=== PATIENT | male | born 1950 | race Caucasian/White ===

== ENCOUNTER 2024-11-25 08:46 | Day surgery (SDC) | payer MEDICARE, OTHER, SELFPAY ==
[2024-11-18 09:50] VITALS: BMI 31.7
[2024-11-25] VITALS (13 sets, daily range): BP systolic 104–159; BP diastolic 55–84; PULSE 16–79; RESP 16–20; TEMP 36.2–36.6; O2SAT 93–98; BMI 31.7
--- NOTE | 2024-11-25 06:00 | DI.RAD.S_ITS ---
PROCEDURE: XR HIP W PEL IF DONE RT 2V INDICATIONS: UNA TECHNIQUE: Three view(s) of the right hip(s). COMPARISON: None. FINDINGS: Bones: No fractures or dislocations. Hardware status post right hip arthroplasty without evidence of complication. Pelvic ring appears intact. No suspicious bony lesions. Soft tissues: The visualized bowel gas pattern is normal. No suspicious soft tissue calcifications. IMPRESSION: No acute bony abnormality or hardware complication status post right hip arthroplasty. Dictated by: Kelvin Pitts M.D. on 11/27/2024 at 18:25 Approved by: Kelvin Pitts M.D. on 11/27/2024 at 18:26
[2024-11-25] MEDS: MELOXICAM 7.5 MG TABLET 15 MG PO (09:32)
--- NOTE | 2024-11-25 10:25 | PM.PREOP ---
Pre-operative Note Interval Note History & Physical reviewed/Exam performed by Physician: Yes Changes to H&P: No
[2024-11-25] MEDS: CEFAZOLIN 2 GM/100 ML PREMIX 100 ML IV (11:15)
[2024-11-25] MEDS: TRANEXAMIC ACID 1,000 MG VIAL 1000 MG INJ (11:45)
--- NOTE | 2024-11-25 11:58 | SUR.OPER ---
Supine on padded Hildebran table with bilateral legs secured in padded positioning boots and suspended in positioning spars, operative leg in traction per surgeon. Head on one pillow. Bilateral arms secured on padded armboards <90 degrees abduction. Padded perineal post in place per surgeon.
--- NOTE | 2024-11-25 13:21 | SUR.OPER ---
POVIDONE IODINE, PEROXIDE, NORMAL SALINE IRRIGATION
--- NOTE | 2024-11-25 13:26 | PM.OP.1 ---
Operative Date/Time/Diagnoses Date of procedure: 11/25/24 Time of procedure: 12:00 Pre-op diagnosis: Right hip osteoarthritis Post-op diagnosis: same Procedure & Clinicians Procedure: Right total hip arthroplasty Same procedure(s) as scheduled: Yes Surgeon: Juan Antonio Simons Timber Framer: Damaris Piña Anesthesia Type: Spinal, Sedation and Local Operative Notes Findings: Severe right hip arthritis Applied: implant(s) Estimated Blood Loss (mL): 250 Procedure in detail: 1. Right Uncemented Direct Anterior Miguel Total Hip Arthroplasty (34285) 2. Computer-Assisted Musculoskeletal Surgical Navigational Orthopedic Procedure Using Fluoroscopic Image Guidance (0054T) Implants: G7 PPS size 62 cup? Z1 femoral stem size 7 coxa vara 40 mm +0 ceramic femoral head? Procedure Summary: This 74-year-old male patient had a short varus neck and was templated for a coxa vara neck with a +7 head. Fluoroscopically during trialing he was noted to be significantly increased from both a lengthened an offset perspective. Downsizing to a +0 head improved both of those parameters without compromising stability so those definitive implants were used. He had robust bone quality but his soft tissue tension was manageable without a conjoined tendon release. He has a significant cardiac history so we will plan to keep him overnight for cardiac monitoring Procedure in Detail: This patient was seen preoperatively and evaluated for hip pain which was refractory to numerous nonoperative treatment modalities. Their hip pain correlated with radiographic changes demonstrating significant degeneration in the hip joint. The risks and benefits of continued nonoperative management versus operative management were discussed at length and all of the patient?s questions were answered. Additional educational materials providing further details beyond our discussion in clinic were provided via a publicly available patient education video which included the incidence of medical complications associated with total hip arthroplasty, reasons for revision following total hip arthroplasty, and patient satisfaction rates following total hip arthroplasty. With this understanding of the risks inherent to the procedure, the patient elected to move forward with operative management. Following preoperative optimization, the patient was scheduled for surgery. The patient was met in the preoperative holding area the day of the procedure and all questions were answered. The patient?s nares were swabbed in order to decolonize them from MRSA. Informed consent was signed and the right limb was marked with indelible ink.? The patient was brought back to the operating room where anesthesia was induced. The patient was transferred to the Harling[place] table and all bony prominences were padded. The operative site was prepped and draped in the usual sterile fashion. Prior to incision, tranexamic acid and cefazolin were administered. Operative templating images were displayed demonstrating the anticipated implant sizes and correct operative extremity. A timeout procedure was performed verifying the patient?s identity, medical comorbidities, allergies, relevant medications, anesthesia type and the surgical plan. All present were in agreement. The assistance of a physician residential living assistant was required for positioning, room setup, soft tissue retraction and wound closure. Without this assistance, the procedure would have been significantly more challenging and time consuming.?? A direct anterior approach to the hip was utilized. This was performed with a longitudinal incision through a Heuter interval. The incision was planned 2 cm distal and 2 cm lateral to the ASIS extending towards the lateral patella, in line with the muscle body of the TFL. Following incision, the subcutaneous tissue was dissected while taking care to avoid injury to the lateral femoral cutaneous nerve. The fascia overlying the TFL was identified by dissecting off the overlying fat and identifying perforating vessels to the TFL. The TFL fascia was incised and dissected away from the medial border of the TFL. A retractor was placed over the superior femoral neck between the abductors and the hip capsule and used to reflect the TFL laterally. A Thurston self-retainer was then placed in the distal aspect of the wound between the TFL and the rectus femoris. This was tensioned to open up the direct anterior interval and the lateral circumflex vessels were identified and coagulated using electrocautery. The floor of the TFL fascia was incised, exposing the pericapsular fat overlying the hip capsule. A second cobra retractor was placed on the inferior femoral neck. A retractor was placed on the anterior wall of the acetabulum and used to tension the reflected head of rectus femoris, which was then released in order to limit soft tissue tension. A capsulotomy was made in the midline of the anterior hip capsule in line with the femoral neck ending at the vastus tubercle. The anterior retractor was removed as soon as the capsulotomy was completed in order to limit the amount of time that a soft tissue retractor remained on the anterior wall and limit tension on the femoral nerve. Tag stitches were placed in the superior and inferior leaflets of the hip capsule. An Mihir soft tissue retractor was introduced over the tag stitches and tensioned in the interval between the rectus femoris and the TFL in order to retract and protect those muscles. The cobra retractors were replaced intracapsularly, with one over the superior neck in the pocket created by the base of the greater trochanter and the other on the femoral head. The capsulotomy was extended laterally to the base of the greater trochanter and medially to the lesser trochanter. This required externally rotating the hip. Once the lesser trochanter had been identified, a neck cut was planned according to measurements from preoperative templating. A ruler was cut at the length measured between the superior aspect of the lesser trochanter and the collar of the prosthesis. This line was extended towards the inferior aspect of the lateral cobra retractor to plan a cut which would leave minimal residual femoral neck laterally. The neck was cut at 60 degrees of external rotation along that line. A second cut was performed to remove a large napkin ring and facilitate head extraction. The napkin ring cut and femoral head were removed.?? A broad anterior wall retractor was placed between the labrum and the anterior capsule so that the anterior capsule would prevent capturing and pinching the femoral nerve anteriorly. An additional retractor was placed on the posterior wall. External rotation and traction were applied through the Harlingen table so that the cut surface of the femoral neck would not restrict access to the acetabulum. The labrum was excised sharply and the pulvinar was excised with electrocautery to limit bleeding from branches of the obturator artery. Acetabular reamers were selected based on preoperative templating and measurements of the excised femoral head. These were introduced into the acetabulum. Fluoroscopy was utilized to replicate a standing AP pelvis radiograph by centering over the pelvis, rotating until there was appropriate symmetry between the obturator foramen, and introducing caudal tilt to match the position of the pubic symphysis relative to the sacrococcygeal junction according to the patient?s anatomy. Once satisfied with the reaming depth corresponding to the preoperative template and the pinch fit between the columns, an appropriate sized acetabular cup was selected which would provide 1 mm of press-fit. This cup was introduced and manipulated until appropriate abduction and anteversion angles were obtained with careful attention to appropriate abduction and anteversion angles as evaluated by the position of the cup relative to the anterior and posterior quintanilla of the acetabulum and the AP fluoroscopy which recreated the patient?s standing radiograph. The cup was impacted into place. Peripheral osteophytes were removed. The acetabular liner was then placed with care to ensure locking of the locking mechanism. Attention was then turned to the femur. All retractors were removed, traction was released, a retractor was placed in the interval between the hip capsule and the gluteus minimus. The lateral capsule was released using electrocautery. Traction was released and a Harlingen hook was placed posteriorly around the proximal femur at the level of the vastus ridge. The table height was lowered in order to restrict the tension on the anterior structures during hip hyperextension to limit the risk of femoral nerve palsy. With traction off and the hip at 90 degrees of external rotation, the hip was hyperextended and adducted while manually elevating the femur away from the acetabulum with the Harlingen hook to avoid hooking the greater trochanter on the pelvis. An asymmetric retractor was placed over the calcar and a broad double-pronged retractor was placed over the greater trochanter. The tag stitch capturing the lateral leaflet of the capsule was moved to the medial side, leaving the conjoined and piriformis tendons isolated in the face of the greater trochanter. The hip was externally rotated and elevated. A release of the conjoined tendon was not necessary in order to obtain adequate exposure for broaching. The canal was opened with an opening broach and a rasp was used to remove cancellous bone. A rongeur was used to remove the residual lateral bone at the base of the greater trochanter to avoid placing the stem in varus. The femur was then broached to the appropriate sized stem yielding good rotational fit and fill of the canal as well as appropriate version of the stem trial. Neck and head trials were placed, all retractors were removed and the hip was returned to neutral abduction and extension. I then reduced the hip and manually trialed it before changing surgical gloves. Initial trialing was performed with a size 7 broach, a coxa vara offset neck and a +7 head. I initially manually externally rotated the hip and found no instability. It was very difficult to reduce the hip. I then locked the hip in 45 degrees of external rotation and dropped it to the floor with traction off which demonstrated no instability. An AP pelvis fluoroscopic image matching the preoperative standing radiograph with both lesser trochanters visible and both hips in 40 degrees of external rotation demonstrated significant increases in both leg length and offset. AP and lateral hip fluoroscopic images were obtained to evaluate the broach size which demonstrated good canal fill. I therefore removed the +7 trial head and replaced it with a +0 trial head. There was still no instability with maximum external rotation or a 45 degree drop test and both leg length and offset were improved relative to the contralateral side. The hip was dislocated and I returned to the broaching position. Based on my evaluation during initial trialing I planned to place those definitive implants. The definitive stem was placed and the trunnion was cleaned and dried. I placed a ceramic head onto the trunnion and impacted it into place on the Arias taper.?? All retractors were removed and the hip was reduced. A dilute mixture of betadine and peroxide was used to bathe the soft tissues during final fluoroscopic assessment. Appropriate component positioning was confirmed on an AP pelvis radiograph with the operative and nonoperative legs in 40 degrees of external rotation, evaluating leg length and offset. Appropriate stem fill was evaluated on AP and lateral hip radiographs. No previously unrecognized fractures were identified on these radiographs. There was no hip instability with maximum (115?) external rotation as well as a 45 degree drop test. The hip was copiously irrigated with pulse lavage. The capsule was closed with absorbable interrupted suture. The TFL fascia was closed with barbed suture while carefully protecting the lateral femoral cutaneous nerve from entrapment. A mixture of Ropivacaine, Epinephrine and Toradol was infiltrated throughout the soft tissues. The skin was closed with 2-0 and 3-0 sutures. Surgical glue was applied and a soft dressing was placed.??The sponge, instrument and needle counts were reported as being correct at the end of the case.??No obvious complications occurred. The patient was transferred from the [facility] back to a stretcher. The patient emerged from anesthesia without difficulty and was taken to the PACU in a stable condition.? Plan for aftercare: No hip precautions Weightbearing as tolerated Aspirin 81 twice per day for DVT prophylaxis Anticipate discharge home tomorrow Multimodal pain regimen with no IV opioids ordered Follow up at [facility] [place] in 2 weeks Complications: none Post-operative Condition: stable Disposition: PACU
--- NOTE | 2024-11-25 13:35 | DI.RAD.S_ITS ---
PROCEDURE: XR HIP W PEL IF DONE RT 2V INDICATIONS: RIGHT TOTAL HIP TECHNIQUE: AP pelvis and lateral view of the hip acquired. COMPARISON: [facility], CR, XR HIP W PEL RT 2V, 11/25/2024, 12:31. FINDINGS: Bones: Patient is status post right hip arthroplasty, with hardware components in expected positions. The hip joint appears congruent. The visualized bony structures appear intact. Soft tissues: Overlying postoperative changes are noted. No suspicious soft tissue densities. Atherosclerotic calcification is noted. IMPRESSION: Expected post-operative appearance of a hip arthroplasty. Dictated by: Ish Munguia M.D. on 11/25/2024 at 13:36 Approved by: Ish Munguia M.D. on 11/25/2024 at 13:36
--- NOTE | 2024-11-25 14:51 | PT-IP ANOTE ---
PT consult received and PT checks on pt in the PACU. Pt is alert but not tracking to PT and no verbalizations. Pt cannot yet move his right leg. Plan is for him to come up to the floor to 212. Anticipate PT assessment next a.m.
--- NOTE | 2024-11-25 14:51 | OT.IPNOTE ---
OT consult received. OT checked on pt in PACU. Pt is alert but unable to track and is currently unable to move his R LE. Pt will be t/f to room 212. OT will attempt evaluation tomorrow.
[2024-11-25 17:23] LABS: Hematocrit 38.4 % (41-53); Hemoglobin 13.3 g/dL (13.5-17.5)
--- NOTE | 2024-11-25 17:50 | PM.PNPO.1 ---
Subjective Subjective Interval history: I came by to check on Jeremías postoperatively. He was resting comfortably. He has ice on his hip. He has intact plantar flexion and dorsiflexion of the ankle as well as intact quadriceps function. He reports paresthesias persisting down the right leg consistent with persistent spinal effects. He is on telemetry with stable heart rate and blood pressure. We are monitoring him overnight to ensure he does not have any cardiac issues. We will plan for discharge tomorrow. We will hold his morning labs per his request so that he does not get woken up early in the morning in his able to get as much sleep as possible on this 1st night postoperatively. Exam Vital Signs (past 8 hours): - 11/25/24 14:04 11/25/24 14:09 11/25/24 14:14 Temperature 97.2 F L Pulse Rate 70 69 16 L Respiratory Rate 16 16 16 Blood Pressure 107/58 L 110/60 104/56 L Pulse Oximetry 98 95 98 Oxygen Delivery Method Room Air Room Air Room Air 11/25/24 14:20 11/25/24 14:34 11/25/24 14:45 Temperature 97.1 F L Pulse Rate 69 68 78 Respiratory Rate 16 16 16 Blood Pressure 110/58 L 104/56 L 106/58 L Pulse Oximetry 98 98 96 Oxygen Delivery Method Room Air Room Air Room Air 11/25/24 14:45 11/25/24 15:15 11/25/24 15:46 Temperature 97.4 F L 97.9 F 97.6 F Pulse Rate 68 67 66 Respiratory Rate 20 18 18 Blood Pressure 106/55 L 106/56 L 113/67 Pulse Oximetry 95 93 94 Oxygen Delivery Method Oxygen Delivery Method Room Air Objective Labs 11/25/24 17:15 Labs: Laboratory Results - last 24 hr 11/25/24 17:15 Hgb 13.3 L Hct 38.4 L [facility] Medical History (Updated 11/18/24 @ 11:52 by Chrissy Youssef RN) ICD (implantable cardioverter-defibrillator) in place (Unknown) HLD (hyperlipidemia) Tinnitus TIA (transient ischemic attack) (~2004) Gout COPD (chronic obstructive pulmonary disease) Asthma Abdominal aortic aneurysm (~2004) HTN (hypertension) Ischemic cardiomyopathy History of myocardial infarction (2005) CAD (coronary artery disease) Primary osteoarthritis of right hip Surgical History (Updated 07/21/25 @ 10:23 by Chrissy Youssef RN) Hx of colonoscopy History of urologic surgery Hx of tonsillectomy Social History household members: other Smoking Status: Former smoker alcohol intake: current Assessment & Plan Post-op Postoperative Procedures: Procedures Operation Date: 11/25/24 10:45 Actual Procedure Side Surgeon p Total Hip Arthroplasty/Anterior Approach Right Juan Antonio Simons MD Quality VTE Deep Vein Thrombosis/Pulmonary Embolism Present on Admission: No
[2024-11-25] MEDS: LACTATED RINGERS 1,000 ML 100 ML IV (18:00)
[2024-11-25] MEDS: ACETAMINOPHEN 325 MG TABLET 975 MG PO (22:05)
[2024-11-25] MEDS: ASPIRIN EC 81 MG TABLET PO (22:05)
[2024-11-25] MEDS: MELATONIN 3 MG TABLET 9 MG PO (22:37)
[2024-11-26] MEDS: TRAMADOL 50 MG TABLET PO (02:23)
[2024-11-26 04:56] VITALS: BP 123/69; PULSE 86; RESP 18; TEMP 36.3; O2SAT 95
[2024-11-26] MEDS: ACETAMINOPHEN 325 MG TABLET 975 MG PO ×2 (06:25→13:06)
[2024-11-26 08:39] VITALS: BP 104/56; PULSE 71; RESP 17; TEMP 37; O2SAT 96
[2024-11-26] MEDS: MELOXICAM 7.5 MG TABLET 15 MG PO (08:43)
[2024-11-26] MEDS: PANTOPRAZOLE DR 40 MG TABLET PO (08:43)
[2024-11-26 08:44] VITALS: BP 124/73; PULSE 74
[2024-11-26] MEDS: ASPIRIN EC 81 MG TABLET PO (08:44)
[2024-11-26] MEDS: EZETIMIBE 10 MG TABLET PO (08:44)
[2024-11-26] MEDS: METOPROLOL ER 50 MG TABLET 100 MG PO (08:44)
--- NOTE | 2024-11-26 09:37 | P.DS_ITS ---
History of Present Illness History of Present Illness Chief complaint: Right Total Hip Arthroplasty/Anterior Approach Narrative: 74-year-old male with a past medical history of coronary artery disease with a prior myocardial infarction presented to [facility] on 11/25/2024 for planned right total hip arthroplasty via anterior approach by Dr. Simons. This elective procedure was planned for chronic right hip osteoarthritis limiting normal activities and causing pain. Surgery was planned after completing preoperative education through online education series of videos. Discharge Providers Provider Discharge Date: 11/26/24 Primary care physician: Doctor Farida MD Consults: 11/18/24 11:59 Consult to Anesthesiology Routine Comment: Consulting Provider: Anesthesiologist Reason for consultation: Surgeon requested re: ICD 11/25/24 06:00 Consult to Anesthesiology Routine Comment: Consulting Provider: Anesthesiologist Reason for consultation: Regional block for post operative pain control 11/25/24 14:06 Consult to Discharge Planning Routine Comment: Consult to Occupational Therapy Evaluate & Treat Comment: Physician Instructions: Evaluate and treat Consult to Physical Therapy Evaluate & Treat Comment: Physician Instructions: Evaluate and Treat Discharge provider: GEORGINA Degroot Dr Summary Hospital Course Hospital Course: On 11/25/2024 the patient was brought to the operating room for right total hip arthroplasty by Dr. Simons at [facility] via anterior approach. There were no immediately known complications to the surgery. He was transferred to the floor for cardiac monitoring overnight. There were no known cardiac events overnight while he was monitored on telemetry and he maintain normal sinus rhythm. On postoperative day 1 his pain was controlled with oral analgesics and he was tolerating normal diet. He was making urine and was able to move to the bathroom with the assist of a walker. He was awaiting physical therapy assessment at time of orthopedic evaluation this morning. Today his vital signs were stable and he felt comfortable returning home in accordance with preoperative plan. Time Spent with Patient Time spent: Less than 30 minutes Exam Vital Signs (past 8 hours): - 11/26/24 04:56 11/26/24 08:39 11/26/24 08:44 Temperature 97.4 F L 98.6 F Pulse Rate 86 71 74 Respiratory Rate 18 17 Blood Pressure 123/69 104/56 L 124/73 Pulse Oximetry 95 96 Oxygen Flow Rate 0 0 11/26/24 08:44 Temperature Pulse Rate 74 Respiratory Rate Blood Pressure 124/73 Pulse Oximetry Oxygen Flow Rate Oxygen Delivery Method Room Air Oxygen Flow Rate 0 Narrative Exam Narrative: Well-developed, well-nourished, 74-year-old male, no acute distress Aquacel dressing is dry and intact to right hip without drainage or erythema or ecchymosis Femoral and sciatic nerve function is intact Objective Labs 11/25/24 17:15 Labs: Laboratory Results - last 24 hr 11/25/24 17:15 Hgb 13.3 L Hct 38.4 L PFSH Medical History (Updated 11/18/24 @ 11:52 by Chrissy Youssef RN) ICD (implantable cardioverter-defibrillator) in place (Unknown) HLD (hyperlipidemia) Tinnitus TIA (transient ischemic attack) (~2004) Gout COPD (chronic obstructive pulmonary disease) Asthma Abdominal aortic aneurysm (~2004) HTN (hypertension) Ischemic cardiomyopathy History of myocardial infarction (2005) CAD (coronary artery disease) Primary osteoarthritis of right hip Surgical History (Updated 11/18/24 @ 10:23 by Chrissy Youssef RN) Hx of colonoscopy History of urologic surgery Hx of tonsillectomy Social History household members: other Smoking Status: Former smoker alcohol intake: current Discharge Assessment & Plan Assessment and Plan Assessment: 74-year-old male with a past medical history of coronary artery disease status post myocardial infarction with ICD in place, TIA, COPD, ischemic cardiomyopathy and abdominal aortic aneurysm is postoperative day 1 from a right total hip arthroplasty by Dr. Simons at [facility] on 11/25/2024. He is recovering well with adequate pain control on oral analgesics and has been ambulating with a front wheeled walker. He denies chest pain, dyspnea, nausea and emesis. He is making urine spontaneously. He is awaiting physical therapy assessment today. The plan is to discharge home today after physical therapy. Plan:? * Weightbearing as tolerated to right lower extremity with front wheeled walker? * Anterior hip precautions? * DVT prophylaxis with 81 mg aspirin twice daily * Continue multimodal analgesia with Tylenol, meloxicam and oxycodone? * Bowel regimen as needed? * Physical therapy evaluation and treatment today? * Follow up with orthopedics 2 weeks post operatively? * All post operative medications ordered at pre operative visit? * Ice to surgical site as needed? Discharge Plan Discharge Plan Patient Disposition: Home Discharge orders & Medications Discharge Orders: Discharge (Order); Ordered 11/26/24 Ordered By: Carleen Tapia Prescriptions: Continued albuterol sulfate 90 mcg/actuation HFA aerosol inhaler 2 inh inhalation Q6-8H PRN (Reason: shortness of breath) Patient Comments: this a.m. fluticasone propion-salmeterol 250-50 mcg/dose blister with device 1 inh inhalation QAM metoprolol succinate 100 mg tablet extended release 24 hr 100 mg PO DAILY lisinopril 40 mg tablet 40 mg PO DAILY ezetimibe [Zetia] 10 mg tablet 10 mg PO DAILY spironolactone [Aldactone] 25 mg tablet 12.5 mg PO DAILY Patient Comments: Not sure of any of the first two. Either heart or blood pressure or cholesterol. meloxicam 15 mg tablet 15 mg PO DAILY PRN (Reason: pain) Qty: 30 1RF pantoprazole 40 mg tablet,delayed release (DR/EC) 40 mg PO DAILY Qty: 30 0RF docusate sodium [Colace] 100 mg capsule 100 mg PO BID PRN (Reason: constipation) Qty: 60 0RF tramadol 50 mg tablet 50 mg PO Q6H PRN (Reason: pain) Qty: 25 0RF Patient Comments: for post op Changed aspirin [Adult Low Dose Aspirin] 81 mg tablet,delayed release (DR/EC) 81 mg PO BID 42 Days Qty: 84 0RF Patient Comments: Does not take on weekends acetaminophen 500 mg capsule 1,000 mg PO Q8H PRN (Reason: Pain) Qty: 90 0RF Patient Comments: took at 0700 Follow up/Referrals: Miscellaneous,Doctor, [Primary Care Provider, Medical] Diet/Activity/Treatments Diet: Diet as Tolerated and Low-sodium Activity: weight bearing as tolerated to right lower extremity with walker Cold/Heat Therapy: ice to right hip Other treatments: Take aspirin 81 mg twice daily (every 12 hours) for prevention of blood clots. Take pain medications as prescribed at your preoperative visit Skin/Wound/Dressing Care Report to your healthcare provider any signs of infection, such as:: chills, fever, night sweats, increased pain, unusual drainage and unusual redness Dressing: leave dressing in place to right hip until follow up in orthopedic clinic Call the office if the dressing becomes saturated or falls off sooner than our 2 week follow up Visit Report/Discharge Packet Instructions: DI for Hip Replacement Stand Alone Forms: Patient Portal/API, Surgery Discharge Print Language: Ukrainian Discharge Data Primary Care Provider: Miscellaneous,Doctor Attending Provider: Juan Antonio Simons VTE Deep Vein Thrombosis/Pulmonary Embolism Present on Admission: No IH PROFEE Charge Codes Discharge inpatient/observation: 07804
--- NOTE | 2024-11-26 10:20 | PT.IIE ---
Current Diagnoses Unilateral primary osteoarthritis, right hip (11/25/24) Surgery Performed Operation Date: 11/25/24 10:45 Actual Procedures p Total Hip Arthroplasty/Anterior Approach(Right) - Juan Antonio Simons MD Surgical History (Last Updated 11/18/24 @ 10:23 by Chrissy Youssef, RN) History of urologic surgery Hx of colonoscopy Hx of tonsillectomy Medical History (Last Updated 11/18/24 @ 11:52 by Chrissy Youssef RN) Abdominal aortic aneurysm (~2004) Asthma CAD (coronary artery disease) COPD (chronic obstructive pulmonary disease) Gout History of myocardial infarction (2005) HLD (hyperlipidemia) HTN (hypertension) ICD (implantable cardioverter-defibrillator) in place (Unknown) Ischemic cardiomyopathy Primary osteoarthritis of right hip TIA (transient ischemic attack) (~2004) Tinnitus Physical Therapy Inpatient Evaluation/Re-Eval M1 PT/OT-IP Prior Functional Status Start: 11/25/24 14:52 Freq: NEEDED Status: Active Protocol: Document 11/26/24 10:20 AB (Rec: 11/26/24 13:31 AB [id number]) Medical Review Prior Functional Status Medical History Yes Reviewed Communication able to make needs known Mobility and Gait pt stated that he was modified independent with all mobilities and ambulation without AD but started using a 4WW ~ 3-4 months ago due to hip pain Social History Household Members other Living Arrangements House Number of Floors ( One Floor Floors) Number of Stairs To 5 steps R rail ascending to enter Enter/Railing? Home Environment Standard Height Toilet,Walk in Shower Home Equipment Front Wheel Walker,Shower Seat without Backrest,Hand Held Shower,Grab Bars In Shower Additional Social pt brother will be staying with pt for ~ 4days to History Comment assist him M2 PT-IP Current Condition Start: 11/25/24 14:52 Freq: NEEDED Status: Active Protocol: Document 11/26/24 10:20 AB (Rec: 11/26/24 13:31 AB [id number]) Physical Therapy Current Condition Current Condition Evaluation Date 11/26/24 Treatment Diagnosis s/p R UNA anterior; difficulty in walking Onset Date 11/25/24 M3 PT-IP Subjective Start: 11/25/24 14:52 Freq: NEEDED Status: Active Protocol: Document 11/26/24 10:20 AB (Rec: 11/26/24 13:31 [id number]) Subjective Physical Therapy Visit Type Type Initial Evaluation Visit Start Time 10:20 Visit Stop Time 11:30 Notes pt seen for split visits: 1020 am to 1030 am and 1055 am to 1130 am Number of DIESEL ENGINE FITTER Visits 0 Physical Therapy Visit Comments Patient Comments agreeable to do PT Therapy Pain Assessment Pain When Pain Assessed At Rest Pain Present Pain Present Pain Reported Location Right Hip Intensity 4 Scale Used Numeric (0 - 10) Pain Management Apply Cold,Distraction,Modification of Treatment,Re- Techniques positioning,Timing of Activity with Medications M4 PT-IP Mobility and Gait Start: 11/25/24 14:52 Freq: NEEDED Status: Active Protocol: Document 11/26/24 10:20 AB (Rec: 11/26/24 13:31 [id number]) PT-Bed Mobility Assessment Supine to Sit Supine to Sit Standby Assistance PT-Transfer Assessment Sit to and From Stand Sit to and from Contact Guard Assistance,1 Person Assistance,Use of Stand Upper Extremities Equipment Transfer Assistive Gait Belt,Front Wheeled Walker Device Orthotic/Prosthetic No Devices or Brace: Transfers Transfer Destination Chair Transfer Technique ambulated Transfer Ability Level of Assist Standby Assistance,Contact Guard Assistance,1 Person Assistance,2 Person Assistance Comments Mobility Comments pt in bed and agreeable to do PT. obtain PLOF and home setup. Nurse came in to check on pt's pacemaker and PT has to come back to PT again after a few minutes. Checked on pt. BP: 110/59. completed supine to sit SBA . able to sit on EOB SBA. sit to stand CGA and ambulated in room using FWW CGA. ~ 25 ft and sat on chair. assessed ambulation using 4WW. sit to stand from chair SBA and ambulated in the hallway using 4WW sBA to CGA. pt completed up/down steps B rails on first attempt CGA and completed again holding on to R rail with B hands CGA. pt ambulated back to his room using 4WW SBA to CGA. Left pt with OT. Gait Assessment Gait Gait Assistance Standby Assistance,Contact Guard Assist Required: Distance (Feet) 100 Able to Maintain Yes Weight Bearing Status During Gait Assistive Devices Assistive Device Gait Belt,Front Wheeled Walker Orthotic/Prosthetic No Devices or Brace: Gait Deviations General Gait Pattern Antalgic,Decreased Stride Length,Decreased Feet Clearance Factors Limiting Gait Function Factors Limiting Decreased Activity Tolerance,Decreased Strength,Limited Gait Function Range of Motion,Pain,Poor Balance,Poor Safety Awareness Stair Climbing Assessment Evaluation Level of Assist On Contact Guard Assistance,1 Person Assistance Stairs Devices Stair Climbing Right Railing Assistive Devices Technique/Endurance Stair Climbing Ascend and Descend Direction Stair Climbing Step to Step Technique Number of Steps 3 Climbed Query Text: Stair Climbing Set # 2 Repetitions (reps) PT-Balance Assessment Sitting Balance and Reactions Static Sitting Normal Balance Ability Dynamic Sitting Good Balance Ability Standing Balance and Reactions Static Standing Fair Balance Ability Dynamic Standing Fair Balance Ability Device Used 4WW M5 PT-IP Objective Assessments Start: 11/25/24 14:52 Freq: NEEDED Status: Active Protocol: Document 11/26/24 10:20 AB (Rec: 11/26/24 13:31 AB [id number]) Orientation Orientation/Cognition Level of Alertness Alert Orientation Name,Place,Situation Language Function No Deficits Noted Ability Safety Awareness Understands Safety Issues Memory Description No Deficits Noted Gross Range of Motion Lower Extremity ROM Assessment Within Functional Limits Strength Lower Extremity Strength Assessment Within Functional Limits Coordination Assessment Gross Coordination Gross Coordination WNL Sensation Assessment Sensation Gross Sensation WNL Muscle Tone Muscle Tone WNL Yes M6 PT-IP Treatment Start: 11/25/24 14:52 Freq: NEEDED Status: Active Protocol: Document 11/26/24 10:20 AB (Rec: 11/26/24 13:31 AB [id number]) Physical Therapy Treatment Education Education Provided Weight Bearing Status,Post-Op Packet,Safety M7 PT-IP Assessment and Plan Start: 11/25/24 14:52 Freq: NEEDED Status: Active Protocol: Document 11/26/24 10:20 AB (Rec: 11/26/24 13:31 AB [id number]) PT Summary Assessment and Plan Potential Rehabilitation Good Potential Status of Condition Stable at Evaluation Summary Impairments Pain,ROM,Strength,Balance,Coordination,Sensation,Tone, Cognition,Bed Mobility,Transfers,Gait,Activity Tolerance Assessment Summary pt is a 74 y/o M s/p R UNA anterior approach POD 1. pt is WBAT on RLE. pt requiring SBA to CGA with mobility using FWW. pt plans to go home with his brother assist him for ~ 4 days. pt has out pt PT setup. Goals Bed Mobility Goal Independent Transfer Goal Independent,Front Wheeled Walker Gait Goal Independent,Front Wheel Walker Gait Distance 200 Other Goals up/down 5 steps R rail ascending SBA Days to Meet Goals 5 Frequency of Treatment Frequency Of Twice a Day Treatment Treatment Plan Physical Therapy Bed Mobility Training,Transfer Training,Gait Training, Treatment Plan Therapeutic Exercise,Balance Retraining,Post Op Education,Discharge Planning,Hot or Cold Pack, Neuromuscular Re-ed,Coordination Retraining,Manual Therapy Weight Bearing Status Weight Bearing Weight Bear as Tolerated Status Allowed Weight RLE WBAT Bearing Amount ( enter % or #) (%) Recommendations To Nursing Amount of Assist 1 Person Assist Needed Discharge Recommendations PT Discharge Home with Assistance,Outpatient PT Recommendations Transportation Needs Private Vehicle at Discharge - PT assist 1
--- NOTE | 2024-11-26 12:19 | CM.DPC ---
DCP Cont. Faxed [facility] order and f/f to [facility]. They will review and confirm SOC.
--- NOTE | 2024-11-26 15:19 | OT.IP.EVAL ---
Current Diagnoses Unilateral primary osteoarthritis, right hip (11/25/24) Surgery Performed Operation Date: 11/25/24 10:45 Actual Procedures p Total Hip Arthroplasty/Anterior Approach(Right) - Juan Antonio Simons MD Past Medical History (Last Updated 11/18/24 @ 11:52 by Chrissy Youssef, RN) Abdominal aortic aneurysm (~2004) Asthma CAD (coronary artery disease) COPD (chronic obstructive pulmonary disease) Gout History of myocardial infarction (2005) HLD (hyperlipidemia) HTN (hypertension) ICD (implantable cardioverter-defibrillator) in place (Unknown) Ischemic cardiomyopathy Primary osteoarthritis of right hip TIA (transient ischemic attack) (~2004) Tinnitus Surgical History (Last Updated 11/18/24 @ 10:23 by Chrissy Youssef RN) History of urologic surgery Hx of colonoscopy Hx of tonsillectomy Occupational Therapy Inpatient Evaluation/Re-Eval M1 PT/OT-IP Prior Functional Status Start: 11/25/24 14:52 Freq: NEEDED Status: Discharge Protocol: Document 11/26/24 12:00 AJIT (Rec: 11/26/24 15:18 [facility] Desktop) Medical Review Prior Functional Status Medical History Yes Reviewed Communication able to make needs known Mobility and Gait pt stated that he was modified independent with all mobilities and ambulation without AD but started using a 4WW ~ 3-4 months ago due to hip pain Activities of Daily pt reports that he performed all his BADL, yard work, Living and IADL's driving, and housework Social History Household Members other Living Arrangements House Number of Floors ( One Floor Floors) Number of Stairs To 5 steps R rail ascending to enter Enter/Railing? Home Environment Standard Height Toilet,Walk in Shower Home Equipment Front Wheel Walker,Shower Seat without Backrest,Hand Held Shower,Grab Bars In Shower Additional Social pt brother will be staying with pt for ~ 4days to History Comment assist him M2 OT-IP Current Condition Start: 11/25/24 14:52 Freq: Status: Discharge Protocol: Document 11/26/24 12:00 AJIT (Rec: 11/26/24 15:18 [facility] Desktop) Occupational Therapy Current Condition Current Condition Evaluation Date 11/26/24 Treatment Diagnosis s/p R UNA anterior, decreased self care Diagnosis Onset Date 11/25/24 Post Operative Precautions Other Precautions per operative note, no hip precautions Weight Bearing Status Weight Bearing Weight Bear as Tolerated Status M3 OT- IP Subjective and Pain Start: 11/25/24 14:52 Freq: Status: Discharge Protocol: Document 11/26/24 12:00 [facility] (Rec: 11/26/24 15:18 [facility] Desktop) OT- Subjective Occupational Therapy Visit Type Type Initial Evaluation Visit Start Time 10:55 Visit Stop Time 11:31 Notes Pt reclined in bed on entrance of OT. Pt agreeable to participating in OT eval. Occupational Therapy Visit Comments Patient Comments To go home. OT Pain Assessment Pain When Pain Assessed At Rest Pain Present Pain Present Pain Reported Location Right Hip Intensity 4 Scale Used Numeric (0 - 10) M4 OT- IP ADL's Start: 11/25/24 14:52 Freq: Status: Discharge Protocol: Document 11/26/24 12:00 [facility]NAL[facility] (Rec: 11/26/24 15:18 [facility] Desktop) OT [id number]-Szffrof Comments OT Self-Feeding not observed Comments OT ADL-Grooming General Evaluation Grooming Ability Independent Comments OT Grooming Comments pt performs hair grooming sink side with mod I, using 4WW. OT ADL-Oral Care Comments Oral Care Comments not observed, pt declined OT ADL-Dressing General Eval Upper Body Dressing Independent Ability Lower Body Dressing Maximum Assistance Ability Areas Needing Retrieving/Set-up of Clothing,Underpants/Brief,Pants/ Assistance Shorts,Socks Comments OT Dressing Comments Pt was MAX A for LB dressing while sitting up in chair. OT then ed pt on use of LB AE for LB dressing (lapper, sock aid, shoe horn). Pt used the lapper to doff sock with min vcs/CGA, sock aid to don sock with min vc/CGA , and the lapper to start underpants on B LEs. Pt declined standing to pull them up over his hips. OT ADL-Toileting General Evaluation Toileting Ability Independent Devices Toileting Assistive Urinal Devices OT ADL-Bathing Comments OT Bathing Comments not observed M5 OT- IP IADL's Start: 11/25/24 14:52 Freq: Status: Discharge Protocol: Document 11/26/24 12:00 AJIT (Rec: 11/26/24 15:18 [facility] Desktop) OT-Instrumental Activities of Daily Living Deficits IADL Deficits No Deficits Identified Home Safety Awareness Awareness of Need Good Awareness for Assistance at Home Ability to Problem Able to Problem Solve Solve Emergency Situations Medication Management Medication No Deficits Identified Management Money Management Money Management No Deficits Identified Meal Preparation Meal Preparation Caregiver Provides Assist Meal Preparation pts brother can assist for a few days Comments Chief Pilot Chief Pilot Caregiver Provides Assist Chief Pilot pts brother can assist Comments Driving Driving Caregiver Provides Assist Driving Comments pts brother can assist M6 OT- IP Functional Cognition Start: 11/25/24 14:52 Freq: Status: Discharge Protocol: Document 11/26/24 12:00 [facility] (Rec: 11/26/24 15:18 [facility]) Cognitive Factors Limiting Selfcare Function Cognitive Ability Level of Alertness Alert Patient Orientation Name,Age,Birthday,Month,Date,Year,Day of Week,Place, Situation Attention Span Capable of Focused Attention,Capable of Sustained Ability Attention Ability to Follow Able to Follow One Step Commands,Able to Follow Multi- Commands Step Commands Memory Description No Deficits Noted Safety Awareness No Deficits Noted Problem Solving No deficits Noted Ability Executive Function No Deficits Noted Ability Abstract Thinking No Deficits Noted Ability OT- Vision and Hearing OT- Hearing Assessment OT- Hearing WFL Assessment OT- Vision Assessment Visual Acuity WFL M7 OT- IP Mobility and Balance Start: 11/25/24 14:52 Freq: Status: Discharge Protocol: Document 11/26/24 12:00 [facility] (Rec: 11/26/24 15:18 [facility]) OT- Bed Mobility Assessment Supine to Sit Supine to Sit Assist Standby Assistance OT-Transfer Assessment Sit to and From Stand Sit to and from Contact Guard Assistance,1 Person Assistance,Use of Stand Upper Extremities Transfers Transfer Ability Contact Guard Assistance,1 Person Assistance,Use of Upper Extremities Technique Transfer Destination Chair Transfer Technique Stand Step Pivot Devices Transfer Assistive Gait Belt,Front Wheeled Walker Devices Comments Mobility Comments BP 110/59 supine, 138/65 sitting. Following PT walking pt in hallway and teaching pt stairs, pt stood sink side for ADLs. Pt returned to the sitting and immediately c/o feeling light headed and sweaty. BP was 85/35 and recovered to 102/55 within 60 seconds. Nsg notified. OT- Gait Assessment Gait Gait Assistance Standby Assistance Required: Distance (Feet) 100 Assistive Devices Assistive Device Gait Belt,Front Wheeled Walker OT- Balance Assessment Sitting Balance and Reactions Static Sitting Normal Balance Ability Dynamic Sitting Good Balance Ability Standing Balance and Reactions Static Standing Fair Balance Ability Dynamic Standing Fair Balance Ability M8 OT- IP Objective Assessments Start: 11/25/24 14:52 Freq: Status: Discharge Protocol: Document 11/26/24 12:00 [facility] (Rec: 11/26/24 15:18 [facility] Desktop) OT Gross Range of Motion Upper Extremity Range of Motion Assessment Within Functional Limits OT Strength Upper Extremity Strength Assessment Within Functional Limits Hand Technical Documentation Specialist Strength Hand Dominance Right Comments Strength Comments 5/5 overall UE strength OT-Muscle Tone Assessment Muscle Tone WNL Yes OT Sensation Assessment Edema Edema Absent M9 OT- IP Assessment and Plan Start: 11/25/24 14:52 Freq: Status: Discharge Protocol: Document 11/26/24 12:00 [facility] (Rec: 11/26/24 15:18 [facility] Desktop) OT Summary Assessment and Plan Potential Rehabilitation Excellent Potential Analytic Complexity Low at Evaluation Summary OT Impairments Pain,Functional Mobility,Grooming,Dressing,Toileting, Bathing,Toilet Transfers,Shower Transfers,Activity Tolerance Progress Towards Progressing Toward Goals Goals Assessment Summary Pt is 74 yo M s/p R UNA anterior approach. Pt is WBAT and has no other precautions. Pt required SBA to CGA with functional t/fs, sink side ADLs with I, LB dressing with max A prior to LB ed (CGA following with use of AE), and I with toileting. Pt likely with increased needs for bathing at this time. Pt plans to d /c home with his brother for ~4 days and has out-pt PT set up in 2 wks. Pt would benefit from HH in the [facility] . Skilled OT services are appropriate to address deficits and promote return towards PLOF. Goals Dressing Goal Independent,Dressing Stick,Long Handled Shoe Horn, Metal Punch Press Operator,Sock Aid Bathing Goal Independent,Grab Bars,Hand Held Shower Sprayer Toilet Transfer Goal Independent,Grab Bars Shower Transfer Goal Independent,Shower Chair Days to Meet Goals 5 Frequency of Treatment Frequency Of Once a Day Treatment Other frequency 5x/wk Treatment Plan OT Treatment Plan ADL Training,Functional Mobility,Therapeutic Exercises, Patient/Family Education,Discharge Planning Discharge Recommendations OT Discharge Home with Assistance,Home Health,Outpatient PT Recommendations Transportation Needs Private Vehicle at Discharge
--- NOTE | 2024-11-27 07:57 | CM.DANOTE ---
Late Entry: Visit was 11/26/24 Initial DCP Assessment Visit Note Reviewed EMR and team rounds for pt's medical status and updates. Met with pt while he was working with PT to discuss self and role, as well as to confirm his preference for which Home Health agency he was wanting us to make a referral to. Pt lives alone, modified independently in his own home in [place]. He has a local brother who will be caring for him post-discharge, and will also be transporting him home later today. Payor: Medicare Atrtending: Dr. Simons Pt is a 74 year-old M post-op day 1 from a R-total hip arthroplasty surgery. He did well postoperatively, pain was well controlled, and he was able to ambulate with SBA with PT. Pt's brother will be taking him to OP PT starting in 3-weeks, however was going to need Home Health in the interim. He chose [facility] as his preference, and clinicals were sent/pt was accepted. They will f/u with him in the next 48-hours to discuss schedule. No further CM d/c needs are indicated at this time. Discharge Planning/Care Management CM Discharge Assessment Start: 11/25/24 09:18 Freq: Status: Discharge Protocol: Document 11/27/24 07:55 DPL (Rec: 11/27/24 07:57 DPL [id number]) Discharge Planning Assessment Assigned Discharge CLARK Mccall Aerial Applicator Pilot Advance Directives? Yes Advance Directives No on File History Provided By Patient,Medical Record Has Patient been No admitted in last 30 days? Prior Living House Arrangements Household Members other Type of Drives own vehicle transporation used prior to admit Independent with ADL No: modified independent with a walker 's Is patient alert and Yes oriented? Comment N/A Caregiver for No Another DME Already Rented / Elevated Toilet Seat,FWW / Walker,Cane Owned Patient/Family Home with Home Health Preference Barriers to No Discharge Discharge Plan Home Community Services Physical Therapy Referrals Initiated Home Health If patient plan is Yes home with home health: Has signed face to face form been completed? Medicare Choice List Yes Provided Medicare choice list patient reviewed on electronic tablet with SNF/HH Preference [facility] Whiteboard Updated Yes in Patient Room with name and ext. # of Citizen Participation Specialist Review Status In Process Please Provide Date 11/27/24 Initial DC Assessment Was Performed Pre-Anesthesia Assessment Start: 11/18/24 09:50 Freq: Status: Complete Protocol: Document 11/18/24 09:50 CAB (Rec: 11/18/24 11:02 CAB [id number]) Pre-Anesthesia Assessment PAC Comment Phone assess 11/18/24 Patient Information Phone Assessment Reviewed Via Assessment Completed Patient With Primary Care KarolinasonuHung Provider Seen Specialist in Yes Last 12 Months Specialist Seen Extract Operator,Orthopedist Primary Language Amharic Seed Potato Arranger Required No Height 173.99 cm Weight 96.162 kg Body Mass Index (BMI 31.7 ) Hearing Ability Normal Visual Assist Glasses Dentition Type Teeth, Natural Present Barriers to Learning None Hx Anesthesia No Reactions Hx Family Anesthesia No Reaction Hx Malignant No Hyperthermia Hx Blood No Transfusions Anesthesia Review Yes: Surgeon requested re: ICD Requested Stamping Die Maker No alcohol intake current Alcohol intake 1-2 drinks per day frequency Smoking Status Former smoker Smoking packs per 1 day how long ago did 12 years ago patient quit smoking Substance Use Type [ marijuana #R] Comment CBD, tincture Pain Present Pain Reported Musculoskeletal Abnormal Gait,Difficulty Walking,Joint Pain Symptoms History of Falling ( Yes Recent or History of ) Patient is No completely paralyzed or completely immobile Prosthesis or Front Wheel Walker Orthotic Device Mental Status Oriented to own ability Is patient on oxygen No ? Does patient have No MENDOZA/SOB Hx Sleep Apnea No Currently Taking a Yes: Metoprolol Beta James Can You Climb a Yes Flight of Stairs Without SOB Hx Chest Pain No Hx SOB No Hx Syncope or No Dizziness Anti-Coagulant Yes Therapy Has a Extract Operator Yes Cardiac Testing No Hx Pacemaker/ICD Yes: Defib form scanned and in surgery folder Pacemaker Rep No Required? Cardiac Clearance Yes Received Diet Type At Home Regular Dysphagia No Gastrointestinal None Symptoms Genitourinary Change in Urinary Stream Symptoms Urinary Catheter No Present Hx Urinary Self No Catheterization Diabetes No HgbA1C 5.5 Date 10/18/24 Hx Drug Resistant No Organism Presence of External Yes: Pacemaker or Internal Medical Devices Marital Status Single Lives With other Current Living House Arrangements Number of Floors ( One Floor Floors) Number of Stairs To 5 Enter/Railing? Support System Sibling(s) Does the Patient Yes: Brother will stay and assist with care at [place] Have Assistance After Surgery Patient Discharge Return Home Plan Description Comment Pt not advised on length of stay Feels Safe in Yes Current Environment Been Physically Hurt No or Threatened By a Person in Current Environment Do you have thoughts None of harming yourself or others? Are you currently No considering suicide? Do you have a plan No Plan to hurt yourself or others? Do You Have Any No Spiritual Beliefs That May Affect Your HC Choices? Do You Have Any No Cultural Practices That May Affect Your HC Choices? Comment Agnostic Who Can We Speak to Family, friends About Patient's Care Identifying Code for Declines to issue Release of Patient Information Health Care Proxy/ Justin vital) Next of Kin Health Care Proxy [phone] Phone Number Emergency Contact Justin () Name Emergency Contact [phone] Phone Number Advance Directives? Yes Advance Directives No on File Requested Patient Yes Bring Advanced Directives DOS Power of Runner On Yes Power of Runner On Justin vital) Name Power of Runner On [phone] Phone Number PAC Instructions Assistance for 24 hours post-op,Durable medical equipment,Medications to take/avoid,No ETOH/petroleum product on skin DOS,Post-op transportation,Pre-surgical wash,Sturdy shoes/comfortable clothes,Do not bring valuables and remove jewelry
--- NOTE | 2024-11-27 08:03 | CM.DPNOTE ---
Secure emailed pt's discharge summary to [facility] to review from pt's discharge home with HH yesterday. CLARK Thomas
--- NOTE | 2024-11-29 14:49 | P.PN_ITS ---
Subjective Subjective Interval history: CIED (cardiac implantable electronic device) preprocedural evaluation and management included review of Pre-Operative Pacemaker Implantable Cardioverter Defibrillator Form, preoperative H and P, review of Cardiology and PCP visits, and AHA Periprocefural Management and Multidisciplinary Care Pathways for patients with Cardiac Implantable electronic devices. Additionally, multidisciplinary discussion with the orthopedic surgery team. No magnet placed per AHA guidelines and information presented in addition to surgical site is below the umbilicus and bipolar electrocautery being utilized. Magnet readily available in the room. As surgeon was using bipolar electrocautery, concern arose for possible AICD firing. 6 paced beats were then noted on the monitor. however, BP stable and EKG returned to normal. resumed surgery without issue. Telemetry was ordered during recovery. Remote Interrogation with Manual Transmission was performed prior to discharge. Per [employer] rep, one shock was delivered intraoperatively due to noise. the CIED is functioning properly and the patient is safe for discharge. Contacted outlet manager Edwards at and left message with office, and per [employer] rep they would reach out to Edwards office as well. 11/29 Edwards's clinic nurse and Edwards returned calls to discuss. Edwards reassured pt CIED is functioning properly. Exam Vital Signs (past 8 hours): Oxygen Delivery Method Room Air Oxygen Flow Rate 0 Objective Labs 11/25/24 17:15 [facility] Medical History (Updated 11/18/24 @ 11:52 by Chrissy Youssef RN) ICD (implantable cardioverter-defibrillator) in place (Unknown) HLD (hyperlipidemia) Tinnitus TIA (transient ischemic attack) (~2004) Gout COPD (chronic obstructive pulmonary disease) Asthma Abdominal aortic aneurysm (~2004) HTN (hypertension) Ischemic cardiomyopathy History of myocardial infarction (2005) CAD (coronary artery disease) Primary osteoarthritis of right hip Surgical History (Updated 11/29/24 @ 13:08 by Winsome Quinones) Hx of colonoscopy History of urologic surgery Hx of tonsillectomy Social History household members: other Smoking Status: Former smoker alcohol intake: current Assessment & Plan Post-op Postoperative Procedures: Procedures Operation Date: 11/25/24 10:45 Actual Procedure Side Surgeon p Total Hip Arthroplasty/Anterior Approach Right Juan Antonio Simons MD Quality VTE Deep Vein Thrombosis/Pulmonary Embolism Present on Admission: No
== END 2024-11-26 14:00 | disposition home or self-care (01) ==
LOC: OR 08:47 → AC 08:49
PROVIDERS: Physician Assistant Surgical; Referring Provider Orthopaedic Surgery Adult Reconstructive Orthopaedic Surgery; Visit Provider Orthopaedic Surgery Adult Reconstructive Orthopaedic Surgery
PROC: (CPT 27130; principal; 2024-11-25 10:45)
DX: M16.11 Unilateral primary osteoarthritis, right hip (principal); M25.751 Osteophyte, right hip; I25.2 Old myocardial infarction; J44.9 Chronic obstructive pulmonary disease, unspecified; I10 Essential (primary) hypertension; I25.5 Ischemic cardiomyopathy; Z87.891 Personal history of nicotine dependence; Z95.810 Presence of automatic (implantable) cardiac defibrillator
CPT/HCPCS: 27130; 0054T; 36415; 73502; 76000; 85014; 85018; 97116; 97161; 97165; 97535; C1776; C1713; J0690; J1100; J2405; J2704; J3010